=== PATIENT | female | born 1965 ===

== ENCOUNTER 2023-03-31 10:22 | Outpatient (AMB) | payer BC, SELFPAY ==
--- NOTE | 2023-03-31 10:36 | HO.SPINEOV ---
Intake Intake Visit Reasons: chronic back pain Intake Note: Ms. Lazar is here today c/o low back pain. MRI done @ [place]. 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 This is a 57-year-old female presents to the office today for evaluation of multifactorial issues with her spine. She had a previous cervical fusion anterior C4-C7 with Dr. Cates in 2007 for what sounds like some kind of spinal cord compression. She did great after that but has been left with chronic neck pain. The reason she comes in today is because she has chronic low back pain and sometime in February started to develop severe symptoms in her back going down into her left leg. It needs to be stated that she has a chronic right-sided lumbar radiculopathy which she has had for 20 years. That is not the thing that was putting her in bed in February, it was this new back pain with symptoms going down into her left leg and calf. She has been through physical therapy, numerous rounds of cortisone injections in her neck and her back to the years. Chiropractic etc.. She takes hydrocodone as needed. She has taken [id number] meds as needed. She is here today with MRI showing degenerative disc disease with disc extrusion at L4-5. PMH: Peripheral artery disease is listed in her epic chart, but she tells me that she had some kind of arterial study of her legs and that this was negative, history of high cholesterol, hypothyroidism, GERD, anxiety, ADD, cervical fusion, allergic rhinitis Social hx: She does not smoke Medications: Hydrocodone, fexofenadine, levothyroxine, baby aspirin, Tylenol, Citrucel, Mckayla Allergies: Oxycodone, cimetidine, Keflex, bee venom and Robaxin Physical exam: Patient is awake alert oriented, no acute distress, she is able stand and walk around the room independently, no focal deficits, reflexes normal. Imaging review: Lumbar MRI done at [facility], [place] shows [id number] degenerative disc disease diffusely, at on the left at L4-5 she has a small disc extrusion in the axilla which seems to be compressing the left L4 nerve root right before it exits the spine. She has a cervical MRI done as well shows a solid fusion from C4-C7 with some mild degenerative changes above and below the fusion. No spinal cord compression seen Impression: This 57-year-old female with the history of chronic low back pain, chronic right leg radiculopathy for 20 years will who had what sounds like acute disc extrusion sometime around January or February which made her almost bed-bound but she is now doing much better. She had a superimposed left leg radiculopathy at that time in addition to worsening of her back pain. I suspect he came from the disc herniation at L4-5. She is currently getting better and is much more mobile. She still has the left leg pain but it seems to be much more manageable. I told her about the natural history of disc herniations, that 90% of them resolve on their own and I suspect that her disc is getting better and would be unlikely to need surgery. We also discussed the fact that she has the right leg radiculopathy for 20 years and we do not see anything on the imaging to explain this. It could be some kind of residual nerve injury from a previous disc herniation but at this time it is any once gases to what may have happened. I told her that surgery on the disc at L4-5 would likely have no effect on her right leg symptoms nor her back pain. If she ended up having recurrence of symptoms we would do a diskectomy simply to treat the left leg symptoms and not her chronic pains. She is going to call me down the road if the left leg symptoms act up again. From the standpoint of her anterior cervical fusion, overall her neck pain is likely going to be a chronic situation as well and I do not think any further surgery would help that. She has a complete fusion from C4-C7 which significantly limits her range of motion and put extra stress on the discs above and below the fusion and is well known these patients will have chronic neck pain after surgery. Thank you for allowing us to care for your patient. The total time spent with this visit with this patient was 60 minutes reviewing history, physical exam, lumbar and cervical imaging review, and implementation of treatment plan or further diagnostic testing Price Antoine MD,PhD [facility] Coding Level of Care Code New Pt Level 5 (99188) Diagnoses Lumbar disc herniation M51.26 Cervical disc disease M50.90
== END 2023-03-31 11:09 | disposition home or self-care (01) ==
PROVIDERS: PCP Internal Medicine; Referring Provider Physician Assistant; Visit Provider Physician Assistant
DX: M51.26 Other intervertebral disc displacement, lumbar region (principal); M50.90 Cervical disc disorder, unspecified, unspecified cervical region
CPT/HCPCS: 99205

== ENCOUNTER → 2023-03-31 10:22 | Outpatient (BNVA) | payer BC, SELFPAY | PROVIDERS: PCP Internal Medicine; Referring Provider Physician Assistant; Visit Provider Physician Assistant ==